=== PATIENT | female | born 1975 | race African-American/Black ===

== ENCOUNTER → 2017-05-29 | Outpatient (CLI) | payer OTHER ==
[~2017-05-29] MED LIST: ALDACTONE25 MG PO; AMLODIPINE BESY10 MG PO; CHLORTHALIDONE25 MG PO; COZAAR 25 MG TA25 M1 PO; COZAAR 50 MG TA50 M2 PO; EXFORGE HCT 101 EAC1 PO; IBUPROFEN 600600 M1 PO; OXYCODONE HCL5 M1 PO; VITAMIN D31000 UNI2 PO
== END ==
LOC: RAD 02:40
DX: Z12.31 Encounter for screening mammogram for malignant neoplasm of breast (principal)